=== PATIENT | female | born 1955 | race Caucasian/White ===

== ENCOUNTER 2022-06-30 07:29 | Outpatient (CLI) | payer MEDICARE, SELFPAY ==
--- NOTE | ~2022-06-30 | PE_ITS ---
EXAMINATION: PET skull to mid thigh DATE: 06/30/2022 09:21 INDICATION: Abnormal finding of lung field TECHNIQUE: Blood glucose level was 82 mg/dL. 10.849 mCi of 18-fluorodeoxyglucose (18-FDG) was adminis tered i.v. Low dose computed tomography (CT) images were acquired from the base of the brain to the p roximal thighs for attenuation correction and anatomic localization. Positron emission tomography (PE T) images were acquired in the same distribution beginning 64 minutes after injection. Images includi ng fused PET/CT images were reconstructed in axial, coronal, and sagittal planes. Automated exposure control technique was employed. The dose-length product was 818.80mGy-cm. COMPARISON: 03/20/2010 FINDINGS: Head/neck: There is symmetric increased activity in the oral cavity, palatine tonsils, parotid glands, submandi bular glands, laryngeal muscles and ocular muscles without CT correlate, likely physiologic. No patho logically enlarged cervical lymphadenopathy or suspicious foci of increased FDG uptake in the visuali zed head or neck. Chest: Mild to moderate upper lung predominant emphysema. Mass with irregular margins in the lateral right u pper lobe with appearance suggesting the intersection of 2 thickened bandlike regions of consolidatio n which measures approximately 4.7 cm AP, 2.8 cm medial to lateral and 4.2 cm in maximal craniocaudal dimensions. There is mild FDG uptake which appears primarily located peripherally with central regio ns of consolidation without appreciable FDG uptake and with comminution of calcific and fluid attenua tion on CT. The foci of maximal FDG uptake are located at the cephalad anterior margin of the region of consolidation with maximal SUV of 3.9 and with the next most prominent focus along the inferior ma rgin with maximal SUV of 3.1. Mild dependent atelectasis in the bilateral lower lobes. No other elisabeth rning nodular or masslike opacities, pulmonary edema or pleural effusion. Heart size is normal. Ather osclerotic coronary artery calcific location. No pericardial effusion. Thoracic aorta is normal in ca liber. No pathologically enlarged or FDG avid thoracic lymphadenopathy. Abdomen/pelvis/proximal thighs: Physiologic renal accumulation and excretion of FDG activity in the kidneys, bladder and along portio ns of ureters. The right kidney is moderately atrophic with corresponding significantly lesser degree of FDG uptake when compared with the left kidney. The atrophy appears new since the prior study from 2009. Normal degree and heterogenous pattern of increased uptake throughout the liver without radiol ogic correlate or dominant FDG avid lesion. The gallbladder, pancreas, spleen and bilateral adrenal g lands are normal. Mild to moderate uptake scattered throughout the bowels without radiologic correlat e, also likely physiologic. Normal appendix. Uterus and bilateral adnexa are unremarkable. No free in traperitoneal gas or fluid. No other abnormal foci of increased FDG uptake or pathologically enlarged lymphadenopathy in the abdomen, pelvis or proximal thighs. Musculoskeletal: Mild lumbar levocurvature with moderate spondylosis. Moderate left hip osteoarthritis. Relative symme tric diffuse mild likely degenerative synovial uptake about the bilateral glenohumeral joints. No lori picious lytic, blastic or FDG avid bone lesions. IMPRESSION: 1. Mild increased FDG uptake associated with a large irregular right upper lobe masslike opacity with maximal SUV of 3.9. Differential would include infection either acute or chronic or centrally necrot ic malignancy. Correlate with any more recent prior outside imaging, with clinical history and could consider CT-guided percutaneous lung biopsy. Reviewed, dictated and finalized at location A. C
[2022-06-30 07:52] LABS: Glucose Point of Care 92 mg/dl (65-105)
== END 2022-06-30 07:30 | disposition home or self-care (01) ==
PROVIDERS: PCP Family Medicine; Visit Provider Family Medicine
DX: R91.8 Other nonspecific abnormal finding of lung field (principal)
CPT/HCPCS: 78815; A9552

== ENCOUNTER 2022-07-16 11:03 | Outpatient (CLI) | payer MEDICARE, SELFPAY ==
[2022-07-16 11:38] LABS: Basophils Absolute Auto 0.1 K/mm3 (0.0-0.1); Basophils Percent Auto 1.1 % (0.2-1.2); Eosinophils Absolute Auto 0.2 K/mm3 (0-0.3); Eosinophils Percent Auto 2.1 % (0-4.4); Hematocrit 37.5 % (37.0-47.0); Immature Granulocyte Absolute 0.02 K/mm3 (0.00-0.031); Immature Granulocyte Percent A 0.2 % (0-0.5); Lymphocytes Absolute Auto 2.88 K/mm3 (0.9-3.2); Lymphocytes Percent Auto 34.3 % (18.3-44.2); Mean Corpuscular Hemoglobin 27.7 pg (26-34); Mean Corpuscular Volume 86.6 fl (80-100); Mean Platelet Volume 9.7 fl (7.4-10.4); Monocytes Absolute Auto 0.7 K/mm3 (0.1-0.6); Monocytes Percent Auto 8.2 % (2.6-8.5); Neutrophils Absolute Auto 4.5 K/mm3 (1.3-6.7); Neutrophils Percent Auto 54.1 % (45.5-73.1); Platelet Count Result 354 k/mm3 (150-375); Red Blood Count 4.33 M/mm3 (4.2-5.4); Red Cell Distribution Width 15.4 % (11.5-14.5); White Blood Count 8.4 K/mm3 (4.5-10.0)
[2022-07-20 10:14] LABS: NIL 0.01 IU/mL; Quantiferon TB Plus, 1T NEGATIVE (NEGATIVE); TB1-NIL 0.01 IU/mL
== END 2022-07-16 11:04 | disposition home or self-care (01) ==
LOC: ANHLAB 11:05
PROVIDERS: PCP Family Medicine; Visit Provider Internal Medicine Pulmonary Disease
DX: R91.8 Other nonspecific abnormal finding of lung field (principal)
CPT/HCPCS: 36415; 85025; 86480; 86606

== ENCOUNTER 2022-07-30 12:24 | Outpatient (CLI) | payer MEDICARE, SELFPAY ==
--- NOTE | 2022-07-31 09:03 | WPDPFTINT ---
PFT Procedure Performed PFT Procedure Performed Spirometry with Pre/Post Bronchodilator Plethysmography (Lung Vol) Diffusing Cap (DLCO) Flow Vol Loop PFT Interpretation Lung volumes were measured with the body plethysmography method. Lung volumes are unremarkable. Spirometry showed normal expiratory flow rates and a normal FEV1 to FVC ratio of 72%. Following administration of a bronchodilator there was no significant increase in expiratory flow rates. Lung diffusion capacity is moderately reduced at 50% predicted. The flow volume loop is unremarkable. Impression: Spirometry and lung volumes within normal range. Moderately reduced lung diffusion capacity.
== END 2022-07-30 12:25 | disposition home or self-care (01) ==
LOC: ANHPFT 12:25
PROVIDERS: PCP Family Medicine; Visit Provider Internal Medicine Pulmonary Disease
DX: J44.9 Chronic obstructive pulmonary disease, unspecified (principal)
CPT/HCPCS: 94060; 94726; 94729

== ENCOUNTER 2022-09-08 12:37 | Outpatient (CLI) | payer MEDICARE, SELFPAY ==
--- NOTE | 2022-09-08 13:00 | ECG_ITS ---
Measurements Intervals [place] Rate: 87 P: 51 GA: 138 QRS: 37 QRSD: 86 T: 53 QT: 385 QTc: 466 Interpretive Statements SINUS RHYTHM NO PREVIOUS ECG AVAILABLE FOR COMPARISON Electronically Signed On 09-08-2022 14:55:08 [employer] by Dylan Stuart M.D.
[2022-09-08 13:58] LABS: Prothrombin Time 12.8 Seconds (11.1-14.7)
== END 2022-09-08 12:38 | disposition home or self-care (01) ==
LOC: ANHSURGERY 12:40
PROVIDERS: PCP Family Medicine; Visit Provider Internal Medicine Pulmonary Disease
DX: R00.0 Tachycardia, unspecified (principal); R91.8 Other nonspecific abnormal finding of lung field
CPT/HCPCS: 36415; 85610; 93005

== ENCOUNTER 2022-09-10 01:36 | Day surgery (SDC) | payer MEDICARE, SELFPAY ==
[2022-09-01 10:34] VITALS: BMI 19.6
[2022-09-10] VITALS (7 sets, daily range): BP systolic 97–169; BP diastolic 66–90; PULSE 90–101; RESP 18–20; TEMP 36.2–36.7; O2SAT 98–100
--- NOTE | ~2022-09-10 | XR_ITS ---
EXAMINATION: XR chest 2V DATE: 09/10/2022 10:27 INDICATION: Right lung mass. TECHNIQUE: Frontal and lateral views of the chest were obtained. COMPARISON: PET/CT 06/30/2022 FINDINGS: There is a peripheral mass in right lung upper lobe. There is mild scarring at the lung api lazara. No pleural effusion or pneumothorax. The heart size is normal. IMPRESSION: 1. Peripheral mass in right lung upper lobe, which may be infection or less likely malignancy. Reviewed, dictated and finalized at location A. OTION SPECIALIST IMPRESSION: 1. Peripheral mass in right lung upper lobe, which may be infection or less lik vonda malignancy.
--- NOTE | ~2022-09-10 | XR_ITS ---
EXAMINATION: XR chest 1V portable INDICATION: Post bronchoscopy TECHNIQUE: Portable AP chest at 1415 hours COMPARISON: 1024 hours, 02/06/2010 FINDINGS: Again seen is a peripheral mass in the right upper lobe. There are increasing airspace opac ities in the right upper lobe. Scarring is noted in the lung apices. No pleural effusion or pneumotho rax. The cardiomediastinal silhouette is normal. IMPRESSION: 1. Stable peripheral mass in the right upper lobe, infection versus malignancy. 2. Increasing airspace opacities of the right upper lobe, likely atelectasis. Reviewed, dictated and finalized at location L. SLATIVE CORRESPONDENT
[2022-09-10] MEDS: LACTATED RINGERS 1,000 ML 150 ML IV CONT (10:46)
--- NOTE | 2022-09-10 11:17 | WPDANESEPPF ---
Anes - Initial Pre Proc Eval Procedure: Operation Date: 09/10/22 12:00 Proposed Procedures p Flexible Bronchoscopy - Bakari Long MD Date/Time: 09/10/22 11:17 Surgeon: Bakari Long MD Pre Op Diagnosis: Abnormal lung PET scan Patient Data Age: 66 Gender: F Height: 1.7 m Weight: 55.6 kg Last Vital Signs Temp 36.2 C L 09/10/22 10:37 Pulse 101 H 09/10/22 10:37 Resp 18 09/10/22 10:37 BP 169/90 H 09/10/22 10:37 Pulse Ox 100 09/10/22 10:37 O2 Del Method Room Air 09/10/22 10:37 Allergies Allergy/AdvReac Type Severity Reaction Status Date / Time No Known Allergies Allergy Unknown Verified 09/10/22 10:36 Home Medications Medication Instructions Recorded Confirmed Type cholecalciferol (vitamin D3) 125 125 mcg PO DAILY 01/01/21 09/01/22 History mcg (5,000 unit) tablet vitamin B complex 1 tablet PO DAILY 01/01/21 09/01/22 History fluticasone furoate 200 1 inh inhalation DAILY #60 ea 07/03/21 09/01/22 Rx mcg-vilanterol 25 mcg/dose inhalation powder (Breo Ellipta) ipratropium 20 mcg-albuterol 100 1 puff inhalation QID PRN 07/15/21 09/01/22 Rx mcg/actuation mist for inhalation shortness of breath #4 grams (Combivent Respimat) cetirizine 5 mg-pseudoephedrine ER 1 tablet PO Q12H PRN sinus 08/08/21 09/01/22 Rx 120 mg tablet,extended symptoms #60 tabs release,12hr (Zyrtec-D) ondansetron 8 mg disintegrating 8 mg PO Q8H PRN nausea and 05/14/22 09/01/22 Rx tablet vomiting #30 tabs omeprazole 20 mg capsule,delayed 20 mg PO DAILY #30 caps 05/16/22 09/01/22 Rx release diazepam 5 mg tablet 5 mg PO TID PRN anxiety #90 tabs 05/19/22 09/01/22 Rx ferrous sulfate 325 mg (65 mg 325 mg PO .every other day 07/06/22 09/01/22 History iron) tablet (Iron (ferrous sulfate)) magnesium oxide 400 mg PO DAILY #30 caps 07/08/22 09/01/22 Rx ibuprofen 800 mg tablet See Rx Instructions .Route 07/16/22 09/10/22 Rx .COMPLEX #90 tabs cyclobenzaprine 10 mg tablet 10 mg PO TID PRN Spasms 09/01/22 09/01/22 History Patient hx anesthesia problems: none Family hx anesthesia problems: none Results Review: All pre-operative results and documents have been reviewed as part of the pre-operative evaluation. [facility] Past Medical History Medical History Anxiety Asthma Chronic pancreatitis Chronic rhinitis COPD (chronic obstructive pulmonary disease) Depression ETOH abuse GERD (gastroesophageal reflux disease) H/O acute pancreatitis H/O alcohol abuse H/O solitary pulmonary nodule HLD (hyperlipidemia) Hypothyroidism Low back pain Lung mass Migraine Moderate episode of recurrent major depressive disorder Normal colonoscopy Patellar fracture Personal history of colonic polyps Tobacco abuse Torn rotator cuff Vitamin B deficiency, unspecified Vitamin D deficiency Surgical History Surgical History History of esophagogastroduodenoscopy (EGD) Family History Family History Other Carcinoma of colon Cerebrovascular accident Family history of Alzheimer's disease Family history of coronary artery disease Social History Social History Smoking packs per day: 1 Smoking cigarettes per day: 20.0 Years smoked: 50 Smoking pack-years: 50.00 Smoking status: Current every day smoker Tobacco type: cigarettes Additional smoking assessment comments: ROLLS HER OWN CIGS. Alcohol intake: current Drinks per week: 2 Alcohol use details: stopped drinking for good last month (Apr 2022) Substance use: never Substance use type: does not use Other substance usage details: smokes daily, helps with nausea Lack of Transportation: No Lack of Food: Never True Current Housing: I Have Housing Concerned About Future Housing: No Dif
--- NOTE | 2022-09-10 11:42 | WPDHPUPDATE1 ---
History and Physical Update Update Date/Time: 09/10/22 11:42 History and Physical has been reviewed, including an updated exam of the patient. There are NO changes in the patient's condition. Risks, benefits, and alternatives have been discussed and questions answered. Patient agrees to proceed with procedure.
[2022-09-10] MEDS: SODIUM CHLORIDE 0.9% IV 500 ML BAG IRRIGATION (13:49)
[2022-09-10] MEDS: LIDOCAINE HCL 2% LOCAL INJ 20 ML VIAL INFILTRATE (13:51)
--- NOTE | 2022-09-10 13:52 | SUR.OPER ---
107cc NS 2cc 2% Lidocaine
[2022-09-10 15:09] LABS: Appearance Bronchial Fluid Hazy; Color Bronchial Fluid Colorless; Lymphocytes Bronchial Fluid 29 %; Macrophages Bronchial Fluid 14; Neutrophils Bronchial Fluid 57 %; Source Bronchial Fluid Bronchial Lavage
--- NOTE | 2022-09-10 15:19 | SUR.PHASEII ---
1520: DR LOGAN AWARE OF CHEST XRAY RESULTS AND NO NEW ORDERS.
== END 2022-09-10 14:49 | disposition home or self-care (01) ==
PROVIDERS: PCP Family Medicine; Visit Provider Internal Medicine Pulmonary Disease
PROC: 0BJ08ZZ Inspection of Tracheobronchial Tree, Via Natural or Artificial Opening Endoscopic (ICD-10-PCS; CPT 31622; principal; 2022-09-10 12:00)
DX: R91.8 Other nonspecific abnormal finding of lung field (principal); J44.9 Chronic obstructive pulmonary disease, unspecified; K21.9 Gastro-esophageal reflux disease without esophagitis; E55.9 Vitamin D deficiency, unspecified; E53.8 Deficiency of other specified B group vitamins; E78.5 Hyperlipidemia, unspecified; F41.9 Anxiety disorder, unspecified; F33.1 Major depressive disorder, recurrent, moderate; Z79.51 Long term (current) use of inhaled steroids; F17.210 Nicotine dependence, cigarettes, uncomplicated; F12.90 Cannabis use, unspecified, uncomplicated
CPT/HCPCS: 31624; 36415; 71045; 71046; 85610; 85999; 87015; 87070; 87102; 87116; 87205; 87206; 87281; 88108; 88184; 88305; 93005; J2370; J2704; J3010; J7040; J7120

== ENCOUNTER 2022-10-29 08:42 | Outpatient (CLI) | payer MEDICARE, SELFPAY ==
--- NOTE | ~2022-10-29 | CT_ITS ---
CT Scan of the Chest without Contrast: Clinical Indication: Right upper lobe mass Technique: Contiguous sections were acquired throughout the chest without intravenous contrast. Dose reduction technique was used on this scan by utilizing automated exposure control and iterative recon struction technique. The dose-length product (DLP) was 136.36 mGy-cm. COMPARISON: 02/15/2012 Findings: There is no evidence of any significant mediastinal, hilar or axillary lymphadenopathy. There are ath erosclerotic calcifications of the aorta. Coronary artery calcifications are present. There is no evidence of pleural or pericardial effusion. There is moderate to advanced emphysema, especially the upper lobes. There is an irregular right uppe r lobe pulmonary masslike lesion measuring up to 4.9 cm in AP extent, 3.5 cm in transverse dimension, and 3.7 cm in craniocaudal extent (axial images 27-41, coronal image 68 for example). There are prob able suture line just superior to the mass along its superior margin. Images through the upper abdomen reveal no abnormalities. Impression: Irregular shaped right upper lobe pulmonary masslike lesion measuring up to 4.9 x 3.5 x 3.7 cm in max imum mentions. Neoplastic disease there is certainly consideration. Tissue sampling should be strongl y considered to establish a histologic diagnosis. Severe underlying emphysema in the upper lobes. Reviewed, dictated and finalized at [facility]. Impression: Irregular shaped right upper lobe pulmonary masslike lesion measuring up to 4.9 x 3.5 x 3.7 cm in maximum mentions. Neoplastic disease there is certainly cons ideration. Tissue sampling should be strongly considered to establish a histolo gic diagnosis. Severe underlying emphysema in the upper lobes.
--- NOTE | 2022-11-01 11:43 | WPDSIXMINUTE ---
Six Minute Walk Procedure Procedure Performed Pulmonary Stress Test (6 min walk) Six Minute Walk Six Minute Walk: This is a 6 minute walk test. The test was performed and interpreted in accordance with the 2014 ERS/ATS task force guidelines. Findings: The patient's resting room air oxygen saturation measured by pulse oximetry was 99% and heart rate was 97 bpm. Patient ambulated for 427 meters and oxygen saturation remained 96 to 98%. Heart rate at the end of the study was 102 bpm. The patient did not qualify for supplemental oxygen at rest or with ambulation. There are no prior studies for comparison.
== END 2022-10-29 08:43 | disposition home or self-care (01) ==
PROVIDERS: PCP Family Medicine; Visit Provider Internal Medicine Pulmonary Disease
DX: R91.8 Other nonspecific abnormal finding of lung field (principal); Z72.0 Tobacco use; J40 Bronchitis, not specified as acute or chronic; J43.9 Emphysema, unspecified
CPT/HCPCS: 71250; 94618

== ENCOUNTER 2022-12-31 09:45 | Outpatient (CLI) | payer MEDICARE, SELFPAY ==
--- NOTE | ~2022-12-31 | XR_ITS ---
Clinical Indication: Nonspecific abnormal finding of lung field PA and lateral views of the chest: Comparison: 09/10/2022 Findings: There is probable residual postinflammatory scarring in the right upper lobe. Left lung is clear. Cardiomediastinal silhouette is within normal limits. Bones and soft tissues are unremarkable . Impression: Probable postinflammatory scarring in the right upper lobe. Left lung clear. Reviewed, dictated and finalized at location . Impression: Probable postinflammatory scarring in the right upper lobe. Left lung clear.
== END 2022-12-31 09:46 | disposition home or self-care (01) ==
LOC: ANHIMG 09:48
PROVIDERS: PCP Family Medicine; Visit Provider Internal Medicine Pulmonary Disease
DX: R91.8 Other nonspecific abnormal finding of lung field (principal)
CPT/HCPCS: 71046

== ENCOUNTER 2023-05-10 08:42 | Outpatient (CLI) | payer MEDICARE, SELFPAY ==
--- NOTE | ~2023-05-10 | XR_ITS ---
XR chest 2V 05/10/2023 09:00 Indication: Previous abnormal finding . Right upper lobe opacity. Procedure: 2 view chest Comparison: Comparison to multiple prior studies sequentially, with oldest reviewed study dated 08/2016. Findings: Stable nodular pleural-based opacity right upper lobe. Heart size normal. Mild dextroscolio sis. No pleural effusion, edema or pneumothorax. Impression: 1: Stable pleural-based opacities right upper lobe which may represent postinfectious/inflammatory ch junaid, although neoplasm is not excluded. Consider correlation with pet/CT scan. Reviewed, dictated and finalized at location B. Impression: 1: Stable pleural-based opacities right upper lobe which may represent postinfe ctious/inflammatory change, although neoplasm is not excluded. Consider correla tion with pet/CT scan.
== END 2023-05-10 08:43 | disposition home or self-care (01) ==
PROVIDERS: PCP Family Medicine; Visit Provider Internal Medicine Pulmonary Disease
DX: R91.8 Other nonspecific abnormal finding of lung field (principal)
CPT/HCPCS: 71046

== ENCOUNTER 2023-11-03 12:05 | Outpatient (CLI) | payer MEDICARE, SELFPAY ==
--- NOTE | ~2023-11-03 | CT_ITS ---
CT Scan of the Chest without Contrast: Clinical Indication: Other nonspecific abnormal finding of lung field Technique: Contiguous sections were acquired throughout the chest without intravenous contrast. Dose reduction technique was used on this scan by utilizing automated exposure control and iterative recon struction technique. The dose-length product (DLP) was 149.36 mGy-cm. COMPARISON: 10/29/2022 Findings: There is no evidence of any significant mediastinal, hilar or axillary lymphadenopathy. Extensive ath erosclerotic calcification are present of the aorta and coronary arteries. There is no evidence of pleural or pericardial effusion. Advanced emphysema of the upper lobes noted. Stable nodular, masslike consolidation the right upper l obe, presumably chronic scarring given lack of interval change. Images through the upper abdomen reveal no abnormalities. Impression: Stable masslike consolidation right upper lobe. Given stability over one year, this is most likely be nign in nature. Advanced upper lobe emphysema. Reviewed, dictated and finalized at [facility]. Impression: Stable masslike consolidation right upper lobe. Given stability over one year, this is most likely benign in nature. Advanced upper lobe emphysema.
== END 2023-11-03 12:06 | disposition home or self-care (01) ==
LOC: ANHIMG 12:08
PROVIDERS: PCP Family Medicine; Visit Provider Internal Medicine Pulmonary Disease
DX: R91.8 Other nonspecific abnormal finding of lung field (principal); J43.9 Emphysema, unspecified
CPT/HCPCS: 71250

== ENCOUNTER 2024-01-31 07:34 | Outpatient (CLI) | payer MEDICARE, SELFPAY ==
--- NOTE | ~2024-01-31 | NM_ITS ---
EXAMINATION: NM beth stress w perfusion DATE: 01/31/2024 10:29 INDICATION: Other forms of dyspnea. TECHNIQUE: Rest images were obtained following intravenous administration of 11 mCi Tc99m tetrofosmin (Myoview). The patient was infused intravenously with Lexiscan (regadenoson). Then, 34.3 mCi Tc99m t etrofosmin (Myoview) was administered intravenously, and stress images were obtained. Data was recons tructed into short axis and horizontal and vertical long axis SPECT images. Gated SPECT images were a lso obtained. COMPARISON: None. FINDINGS: There is no definite reversible or fixed perfusion abnormality to suggest ischemia or infar ction. There is no segmental wall motion abnormality. Left ventricular ejection fraction measures 6 8%. IMPRESSION: 1. No definite ischemia or infarct. 2. Normal left ventricular ejection fraction measuring 68%. Reviewed, dictated and finalized at location A.
--- NOTE | 2024-01-31 07:40 | ECHO_ITS ---
Patient Info Name: Magalys Mitchell Age: 68 years : 1955 Gender: Female Ht: 67 in Wt: 135 lbs BSA: 1.70 m2 HR: 68 bpm BP: 168 / 92 mmHg Technical Quality: Good Exam Date: 01/31/2024 7:47 AM Exam Location: Echo Lab Patient Status: Outpatient Admit Date: 01/31/2024 Staff Ordering Physician: Guerrero Mejia DO Filler Picker: Ellie Morgan RDCS Attending Provider: Guerrero Mejia DO Referring Physician: Roberto TORRES; Exam Type: CA echo doppler color flow Study Info Indications R00.2 - Palpitations Complete two-dimensional, color flow and Doppler transthoracic echocardiogram is performed. Summary 1. Complete two-dimensional, color flow and Doppler transthoracic echocardiogram is performed. 2. Left ventricular chamber dimension is normal. 3. Left ventricular systolic function is normal, estimated at 60-65%. 4. There is moderate concentric increased left ventricular wall thickness. 5. The left ventricular diastolic function is grade II diastolic dysfunction. 6. E/e' 14 is mildly elevated. 7. Global longitudinal strain is abnormal at -14.6%. 8. Left atrial chamber dimension is moderately enlarged. 9. There is mild aortic valve sclerosis. 10. There is mild to moderate mitral valve regurgitation. 11. There is mild tricuspid valve regurgitation. 12. No pulmonary hypertension, estimated pulmonary arterial systolic pressure is 38 mmHg. Left Ventricle E/e' 14 is mildly elevated. Global longitudinal strain is abnormal at -14.6%. Left ventricular chamber dimension is normal. Left ventricular systolic function is normal, estimated at 60-65%. There is moderate concentric increased left ventricular wall thickness. The left ventricular diastolic function is grade II diastolic dysfunction. Right Ventricle Right ventricular systolic function is normal and with normal TAPSE 2.2 cm. Right ventricular chamber dimension is normal. Left Atria Left atrial chamber dimension is moderately enlarged. Right Atria Right atrial chamber dimension is normal. Aortic Valve The aortic valve is trileaflet. There is mild aortic valve sclerosis. There is no aortic valve stenosis. There is no aortic valve regurgitation. Pulmonic Valve There is no pulmonic regurgitation. Mitral Valve There is no mitral valve stenosis. There is mild to moderate mitral valve regurgitation. Tricuspid Valve There is mild tricuspid valve regurgitation. No pulmonary hypertension, estimated pulmonary arterial systolic pressure is 38 mmHg. Pericardium/Pleural There is no pericardial effusion. Inferior Vena Cava Normal inferior vena cava with >50% collapse upon inspiration consistent with normal right atrial pressure, 5 mmHg. Aorta The aortic root size at the sinus of Valsalva is normal. Left Ventricular Outflow Tract Name Value Normal LVOT 2D LVOT Diameter 1.9 cm LVOT Doppler LVOT Peak Gradient 2 mmHg LVOT Mean Gradient 1 mmHg LVOT VTI 17 cm LVOT VTI/AV VTI Ratio 0.7 LVOT Stroke Volume 50 ml LVOT CO 3.8 l/min LVOT CI 2.2 l/
--- NOTE | 2024-01-31 07:41 | EST_ITS ---
Patient Info Name: Magalys Mitchell Age: 68 years : 1955 Gender: Female Ht: 67 in Wt: 135 lbs BSA: 1.70 m2 HR: 77 bpm BP: 196 / 85 mmHg Heart Rhythm: Sinus Rhythm Exam Date: 01/31/2024 9:08 AM Exam Location: Echo Lab Patient Status: Outpatient Admit Date: 01/31/2024 Staff Ordering Physician: Guerrero Mejia DO Attending Provider: Guerrero Mejia DO Exercise Technologist: Taylor Mcmanus CT Exercise Physician: Guerrero Mejia DO Exam Type: CA stress beth w NM Study Info Indications R06.09 - Other forms of dyspnea A regadenoson stress test was performed. Summary 1. 1. Negative lexiscan stress test for ischemic ST changes by ECG criteria. 2. 2. Baseline hypertension. 3. 3. Nuclear scan to follow and will be reported separately. Please correlate with it. 4. 4. Patient informed of the above results. Protocol: Lexiscan Stress ECG Details Stage: REST Duration (min): 2 min : 17 sec HR (bpm): 82 SBP (mmHg): 196 DBP (mmHg): 85 Stage: REST Duration (min): 8 min : 51 sec HR (bpm): 68 SBP (mmHg): 189 DBP (mmHg): 85 Stage: REST Duration (min): 9 min : 51 sec HR (bpm): 63 SBP (mmHg): 189 DBP (mmHg): 85 Stage: REST Duration (min): 12 min : 14 sec HR (bpm): 69 SBP (mmHg): 189 DBP (mmHg): 85 Stage: STAGE 1 Duration (min): 1 min : 0 sec HR (bpm): 92 SBP (mmHg): 189 DBP (mmHg): 85 Stage: RECOVERY Duration (min): 1 min : 0 sec HR (bpm): 97 SBP (mmHg): 189 DBP (mmHg): 85 Stage: RECOVERY Duration (min): 1 min : 53 sec HR (bpm): 90 SBP (mmHg): 206 DBP (mmHg): 98 Rest HR: 69 bpm Peak HR: 97 bpm Rest Sys BP: 189 mmHg Peak Sys BP: 206 mmHg Max Pred HR: 151 bpm % Max Pred HR: 64 % Target HR: 128 bpm Max RPP: 19,982 bpm*mmHg Termination Reason: Completed protocol Cardiac Symptoms: Shortness of breath Total Time: 1 min : 0 sec Rest Roth BP: 85 mmHg Peak Roth BP: 98 mmHg Total Dose: 0.4 mg Resting ECG Sinus rhythm, T wave abnormality in ant/inf leads. Stress ECG No ST changes. Arrhythmias None. Report Signatures
== END 2024-01-31 07:35 | disposition home or self-care (01) ==
LOC: ANHCARD 07:34
PROVIDERS: PCP Family Medicine; Visit Provider Internal Medicine Cardiovascular Disease
DX: R06.09 Other forms of dyspnea (principal); I51.89 Other ill-defined heart diseases; I35.8 Other nonrheumatic aortic valve disorders; I34.0 Nonrheumatic mitral (valve) insufficiency; I36.1 Nonrheumatic tricuspid (valve) insufficiency
CPT/HCPCS: 78452; 93017; 93306; A9502; J2785

== ENCOUNTER 2024-05-09 00:13 | Day surgery (SDC) | payer MEDICARE, SELFPAY ==
[2024-04-24 10:39] VITALS: BMI 22.4
[2024-05-09 06:24] VITALS: BP 161/91; PULSE 112; RESP 20; TEMP 36.3; O2SAT 100
[2024-05-09] MEDS: LACTATED RINGERS 1,000 ML 150 ML IV CONT (06:34)
--- NOTE | 2024-05-09 07:22 | SUR.PREOP ---
DR KATE NOTIFIED PT ATTEMPTED TO TAKE SUPREP BOWEL PREP AND VOMITED IT UP. PT THEN TOOK ONE BOTTLE OF MAGNESIUM CITRATE. PT STATES STOOLS ARE LIQUID WATERY YELLOW. DR KATE SPOKE WITH PT AND DECIDED TO RESCHEDULE COLONOSCOPY AND PROCEED WITH EGD AT THIS TIME. PT AND SPOUSE AWARE.
--- NOTE | 2024-05-09 07:24 | P.PNAN_ITS ---
Anes - Initial Pre Proc Eval Procedure: Operation Date: 05/09/24 07:30 Proposed Procedures p Esophagogastroduodenoscopy & Colonoscopy - Ovi Jorgensen MD Date/Time: 05/09/24 07:24 Surgeon: Ovi Jorgensen MD Pre Op Diagnosis: Other specified diseases of intestine Patient Data Age: 68 Gender: F Height: 1.7 m Weight: 63.3 kg Last Vital Signs Temp 97.3 F L 05/09/24 06:24 Pulse 112 H 05/09/24 06:24 Resp 20 05/09/24 06:24 BP 161/91 H 05/09/24 06:24 Pulse Ox 100 05/09/24 06:24 O2 Del Method Room Air 05/09/24 06:24 Allergies Allergy/AdvReac Type Severity Reaction Status Date / Time No Known Allergies Allergy Unknown Verified 05/09/24 06:22 Home Medications Medication Instructions Recorded Confirmed Type cyclobenzaprine 10 mg tablet 10 mg PO TID PRN Spasms #90 tabs 09/01/23 05/09/24 Rx atorvastatin 80 mg tablet 80 mg PO HS 10/29/23 05/09/24 History cyanocobalamin (vitamin B-12) 5,000 mcg sublingual DAILY 10/29/23 05/09/24 History 5,000 mcg sublingual tablet (Vitamin B-12) pantoprazole 40 mg tablet,delayed 40 mg PO BID #180 tabs 12/28/23 05/09/24 Rx release aspirin 81 mg tablet,delayed 81 mg PO DAILY #30 tabs 01/06/24 05/09/24 Rx release metoprolol succinate 25 mg 25 mg PO DAILY #30 tabs 01/06/24 05/09/24 Rx tablet,extended release 24 hr diazepam 5 mg tablet 5 mg PO TID PRN anxiety #90 tabs 04/04/24 05/09/24 Rx ondansetron 8 mg disintegrating 8 mg PO Q8H PRN nausea and 04/04/24 05/09/24 Rx tablet vomiting #30 tabs losartan 25 mg tablet 25 mg PO BID 04/27/24 05/09/24 History Patient hx anesthesia problems: none Family hx anesthesia problems: none Results Review: All pre-operative results and documents have been reviewed as part of the pre- operative evaluation. FORMERLY [facility], [facility] Past Medical History Medical History Anxiety Asthma Chronic pancreatitis Chronic rhinitis COPD (chronic obstructive pulmonary disease) CVA (cerebral vascular accident) Depression Essential hypertension ETOH abuse FHx: carotid endarterectomy Flu GERD (gastroesophageal reflux disease) H/O acute pancreatitis H/O alcohol abuse H/O solitary pulmonary nodule HLD (hyperlipidemia) Hypothyroidism Iron deficiency Low back pain Lung mass Migraine Moderate episode of recurrent major depressive disorder Normal colonoscopy Patellar fracture Personal history of colonic polyps Tobacco abuse Torn rotator cuff Vitamin B deficiency, unspecified Vitamin D deficiency Surgical History Surgical History History of esophagogastroduodenoscopy (EGD) Family History Family History Other Carcinoma of colon Cerebrovascular accident Family history of Alzheimer's disease Family history of coronary artery disease Social History Social History Smoking packs per day: 1 Smoking cigarettes per day: 20.0 Years smoked: 50 Smoking pack-years: 50.00 Smoking status: Former smoker Tobacco type: cigarettes
--- NOTE | 2024-05-09 07:26 | PM.IMHP ---
H&P: HPI History of Present Illness Date/Time: 05/09/24 07:26 Chief Complaint: History of colonic polyps, large duodenal adenoma with dysplasia resected @ [facility] in 2022 and a strong family history of colorectal cancer. Narrative: Here for surveillance EGD and colonoscopy. The patient states that she was unable to tolerate the complete colonic prep, vomiting about 50% of it. She is not sure about the adequateness of the prep. Review of Systems Review of Systems: All systems reviewed & are unremarkable except as noted in HPI and below [facility] Past Medical History Medical History (Updated 05/09/24 @ 07:33 by Ovi Jorgensen MD) Adenomatous duodenal polyp Anxiety Asthma Chronic pancreatitis Chronic rhinitis COPD (chronic obstructive pulmonary disease) CVA (cerebral vascular accident) Depression Essential hypertension ETOH abuse FHx: carotid endarterectomy Flu GERD (gastroesophageal reflux disease) H/O acute pancreatitis H/O alcohol abuse H/O solitary pulmonary nodule HLD (hyperlipidemia) Hypothyroidism Iron deficiency Low back pain Lung mass Migraine Moderate episode of recurrent major depressive disorder Normal colonoscopy Patellar fracture Personal history of colonic polyps Tobacco abuse Torn rotator cuff Vitamin B deficiency, unspecified Vitamin D deficiency Surgical History Surgical History History of esophagogastroduodenoscopy (EGD) Family History Family History Other Carcinoma of colon Cerebrovascular accident Family history of Alzheimer's disease Family history of coronary artery disease Social History Social History Smoking packs per day: 1 Smoking cigarettes per day: 20.0 Years smoked: 50 Smoking pack-years: 50.00 Smoking status: Former smoker Tobacco type: cigarettes Smoking end date: 11/27/22 Additional smoking assessment comments: ROLLS HER OWN CIGS. Alcohol intake: never Drinks per week: 6 Alcohol use details: DRINKS Substance use: current Substance use type: marijuana Other substance usage details: Daily before bed Last use: 04/23/2024 Lack of Transportation: No Lack of Food: Never True Current Housing: I Have Housing Concerned About Future Housing: No Difficulty Paying Gas/Electric Bills: No Difficulty Paying for Meds: No Currently Unemployed: No Education: Trade/Vocational Certificate Difficulty w/ Childcare or Family Care: No Living arrangements: with family Spiritual care concerns: No Meds Home Medications and Allergies Home Medications Medication Instructions Recorded Confirmed Type cyclobenzaprine 10 mg tablet 10 mg PO TID PRN Spasms #90 tabs 09/01/23 05/09/24 Rx atorvastatin 80 mg tablet 80 mg PO HS 10/29/23 05/09/24 History cyanocobalamin (vitamin B-12) 5,000 mcg sublingual DAILY 10/29/23 05/09/24 History 5,000 mcg sublingual tablet (Vitamin B-12) pantoprazole 40 mg tablet,delayed 40 mg PO BID #180 tabs 12/28/23 05/09/24 Rx release aspirin 81 mg tablet,delayed 81 mg PO DAILY #30 tabs 01/06/24 05/09/24 Rx release metoprolol succinate 25 mg 25 mg PO DAILY #30 tabs 01/06/24 05/09/24 Rx tablet,extended release 24 hr diazepam 5 mg tablet 5 mg PO TID PRN anxiety #90 tabs 04/04/24 05/09/24 Rx ondansetron 8 mg disintegrating 8 mg PO Q8H PRN nausea and 04/04/24 05/09/24 Rx tablet vomiting #30 tabs losartan 25 mg tablet 25 mg PO BID 04/27/24 05/09/24 History Allergies Allergy/AdvReac Type Severity Reaction Status Date / Time No Known Allergies Allergy Unknown Verified 05/09/24 06:22 Vital Signs Vital Signs - 24 hr 05/09/24 06:24 Temperature 97.3 F L Pulse Rate 112 H Respiratory Rate 20 Blood Pressure 161/91 H Pulse Oximetry 100 Oxygen Delivery Room Air Assessment and Plan Assessment and plan (
[2024-05-09] MEDS: BENZOCAINE (*SP) 60 ML SPRAY CAN (HURRICAINE) 1 SPRAY MUCOUS MEM (07:34)
[2024-05-09 07:50] VITALS: BP 142/78; PULSE 92; RESP 22; O2SAT 100
[2024-05-09 08:00] VITALS: BP 145/75; PULSE 85; RESP 21; O2SAT 100
[2024-05-09 08:10] VITALS: BP 167/89; PULSE 89; RESP 19; O2SAT 100
== END 2024-05-09 08:44 | disposition home or self-care (01) ==
PROVIDERS: PCP Family Medicine; Referring Provider Family Medicine; Visit Provider Internal Medicine Gastroenterology
PROC: 0DJ08ZZ Inspection of Upper Intestinal Tract, Via Natural or Artificial Opening Endoscopic (ICD-10-PCS; CPT 43235; principal; 2024-05-09 07:30)
DX: K29.50 Unspecified chronic gastritis without bleeding (principal); K31.89 Other diseases of stomach and duodenum; D64.89 Other specified anemias; K21.9 Gastro-esophageal reflux disease without esophagitis; D50.9 Iron deficiency anemia, unspecified; F41.9 Anxiety disorder, unspecified; K86.1 Other chronic pancreatitis; J31.0 Chronic rhinitis; J44.9 Chronic obstructive pulmonary disease, unspecified; I10 Essential (primary) hypertension; E78.5 Hyperlipidemia, unspecified; E03.9 Hypothyroidism, unspecified; E53.8 Deficiency of other specified B group vitamins; E55.9 Vitamin D deficiency, unspecified; F33.9 Major depressive disorder, recurrent, unspecified; F12.90 Cannabis use, unspecified, uncomplicated; Z79.82 Long term (current) use of aspirin; Z98.890 Other specified postprocedural states; Z87.891 Personal history of nicotine dependence; Z86.0100 Personal history of colon polyps, unspecified; Z86.79 Personal history of other diseases of the circulatory system; Z80.0 Family history of malignant neoplasm of digestive organs; Z82.49 Family history of ischemic heart disease and other diseases of the circulatory system
CPT/HCPCS: 43239; 88305; J2003; J2704; J7120